=== PATIENT | female | born 1965 | race Caucasian/White ===

== ENCOUNTER 2017-05-13 14:09 | Inpatient (IN) | payer BC ==
[~2017-05-13] VITALS: Ht 162.6 cm; Wt 59.4 kg
[2017-05-13 15:03] LABS: EOSINOPHIL (%) 1.7 % (0-5); EOSINOPHIL COUNT 0.1 K/uL (0-0.3); HEMATOCRIT 39.9 % (36.0-46.0); IMMATURE GRANULOCYTE (%) 0.2 % (0.0-0.7); INSTRUMENT ABS NEUTROPHIL CT 2.8 K/uL; LYMPHOCYTE COUNT 1.2 K/uL (1.0-2.8); MCH 28.7 PG (29.0-34.0); MCHC 34.8 G/DL (30.0-36.0); MCV 82.4 FL (83-99); MEAN PLAT.VOLUME 9.9 uM^3 (9.5-12.4); MONOCYTE COUNT 0.5 K/uL (0-0.8); NEUTROPHIL (%) 60.3 % (45-76); NEUTROPHIL COUNT 2.8 K/uL (1.8-6.4); PLATELET COUNT 207 K/uL (156-360); RBC DIS.WIDTH-CV 12.5 % (11.8-14.6); RBC DIS.WIDTH-SD 37.8 % (39-53); RED BLOOD COUNT 4.84 M/uL (3.80-5.20); WHITE BLOOD COUNT 4.7 K/uL (4.1-10.2)
[2017-05-13 15:14] LABS: CHLORIDE 105 mEq/L (99-109); POTASSIUM 4.1 mEq/L (3.7-5.4); SODIUM 139 mEq/L (136-147)
[2017-05-13 15:16] LABS: GLUCOSE 96 mg/dL (70-99)
[2017-05-13 15:17] LABS: ANION GAP 9 MEQ/L (2-14)
[2017-05-13 15:18] LABS: TOTAL BILIRUBIN 0.8 mg/dL (0.0-1.0)
[2017-05-13 15:19] LABS: SERUM ETHYL ALCOHOL < 10 mg/dL
[2017-05-13 15:20] LABS: ALKALINE PHOSPHATASE 63 IU/L (3-129); GFR ESTIMATE (CALCULATED) > 59 mL/min/
[2017-05-13 15:22] LABS: UREA NITROGEN (BUN) 15 mg/dL (9-23)
[2017-05-13 15:23] LABS: SALICYLATE < 5.0 MG/DL (15-30)
[2017-05-13 15:25] LABS: ADD MIUA? YES; BILIRUBIN NEGATIVE; BLOOD SMALL; COLOR YELLOW ((YELLOW)); GLUCOSE (STRIP) NEGATIVE; KETONES NEGATIVE; LEUKOCYTES NEGATIVE; NITRITE NEGATIVE; PROTEIN (STRIP) NEGATIVE; SPECIFIC GRAVITY 1.012 (1.000-1.030); UROBILINOGEN 0.2 MG/DL (0.2-1.0)
[2017-05-13] MEDS ORDERED: ZOLOFT100 MG PO (15:39)
[2017-05-13 15:42] LABS: AMPHETAMINE NEGATIVE (500 ng/mL); BARBITURATES NEGATIVE (200 ng/mL); BENZODIAZEPINES NEGATIVE (150 ng/mL); COCAINE NEGATIVE (150 ng/mL); INTERNAL CONTROLS VALID? YES; METHADONE NEGATIVE (200 ng/mL); METHAMPHETAMINE NEGATIVE (500 ng/mL); OPIATES (MORPHINE) NEGATIVE (100 ng/mL); OXYCODONE NEGATIVE (100 ng/mL); PHENCYCLIDINE NEGATIVE (25 ng/mL); PROPOXYPHENE NEGATIVE (300 ng/mL); THC CANNABINOIDS NEGATIVE (50 ng/mL); TRICYCLIC ANTIDEPRESSANTS NEGATIVE (300 ng/mL)
[2017-05-13 15:45] LABS: BACTERIA RARE /HPF; EPITHELIAL CELLS 1+ /HPF; MUCUS NONE SEEN /LPF; RED BLOOD CELLS 0-5 /HPF (0-5); UCUL ADDED? NO; WHITE BLOOD CELLS 0-5 /HPF (0-5)
[2017-05-13] MEDS ORDERED: CEPHALEXIN500 MG PO (17:36)
[2017-05-13] MEDS ORDERED: XANAX0.25 MG PO (17:42)
[2017-05-13 18:28] VITALS: BP 115/74
[2017-05-14 07:38] VITALS: BP 128/60
[2017-05-14 16:59] VITALS: BP 105/64
[2017-05-15 07:31] VITALS: BP 108/55
[2017-05-15 15:31] VITALS: BP 116/64
[2017-05-16 07:42] VITALS: BP 94/55
[2017-05-16] MEDS ORDERED: ARIPIPRAZOLE10 MG PO (09:18)
[2017-05-16] MEDS ORDERED: SERTRALINE HCL100 MG PO (09:18)
== END 2017-05-16 10:45 | disposition home or self-care (01) | DRG 885 ==
LOC: EME 14:09 → 1WEST 15:27 → EDOF 15:27 → 1WEST 15:27 → ENRESERV 16:30 → 1WEST 17:58
PROVIDERS: Emergency Medicine
DX: F33.2 Major depressive disorder, recurrent severe without psychotic features (principal); R45.851 Suicidal ideations; F60.9 Personality disorder, unspecified; Z81.8 Family history of other mental and behavioral disorders
CPT/HCPCS: 80053; 81003; 85025; 90839; 97150 GO; 99281; 99285; G0480